=== PATIENT | female | born 1975 | race Two or more races ===

== ENCOUNTER 2016-09-27 21:55 | Emergency (ER) | payer MEDICAID ==
[~2016-09-27] VITALS: Ht 160 cm; Wt 45.4 kg
--- NOTE | 2016-09-27 22:46 | NUR ---
Dr. Mason at bedside for eval.
--- NOTE | 2016-09-27 22:52 | NUR ---
pt ambulatory w/ steady gait to restroom, urine obtained & sent to lab.
--- NOTE | 2016-09-27 23:11 | NUR ---
clinical laboratory manager at bedside for blood draw.
[2016-09-27] MEDS ORDERED: IV SET PRIMARY 1 EA INFUS.SET MC ONE (23:14)
[2016-09-27] MEDS ORDERED: IV NS 0.9% 500 ML IV ONE (23:14)
[2016-09-27] MEDS ORDERED: LORAZEPAM INJ 2 MG/ML VIAL ONE (23:14)
[2016-09-27] MEDS: IV NS 0.9% 500 ML BAG IV ONE (23:20)
--- NOTE | 2016-09-27 23:20 | NUR ---
IVHL started, medicated as ordered.
[2016-09-27] MEDS: LORAZEPAM INJ 2 MG/ML VIAL IV ONE (23:21)
[2016-09-27 23:29] LABS: BASOPHILS # (AUTO) 0.1 /CMM (0.0-0.2); BASOPHILS % (AUTO) 0.9 % (0.0-2.0); EOSINOPHILS # (AUTO) 0.1 /CMM (0.0-0.7); HEMATOCRIT 38 % (33-45); HEMOGLOBIN 12.7 g/dL (11.5-14.8); LYMPHOCYTES # (AUTO) 1.8 /CMM (0.8-4.8); LYMPHOCYTES % (AUTO) 28.6 % (20.0-44.0); MEAN CORPUSCULAR HEMOGLOBIN 32 PG (26.0-33.0); MEAN CORPUSCULAR HGB CONC 33 g/dl (31.0-36.0); MEAN CORPUSCULAR VOLUME 97 fL (82-100); MONOCYTES # (AUTO) 0.4 /CMM (0.1-1.30); MONOCYTES % (AUTO) 7.3 % (2.0-12.0); NEUTROPHILS # (AUTO) 3.8 /CMM (1.8-8.9); NEUTROPHILS % (AUTO) 62.2 % (43.0-81.0); PLATELET COUNT (AUTO) 273 /CMM (150-450); RDW COEFFICIENT OF VARIATION 13.9 (11.5-15.0); RED BLOOD CELL COUNT(AUTO) 3.94 MIL/uL (4.0-5.2); WHITE BLOOD COUNT (AUTO) 6.2 K/uL (4.3-11.0)
[2016-09-27 23:32] LABS: BILIRUBIN,URINE NEGATIVE (NEGATIVE); BLOOD, URINE 1+ Ery/uL (NEGATIVE); COLOR,URINE YELLOW (YELLOW); KETONES,URINE NEGATIVE (NEGATIVE); LEUKOCYTE ESTERASE ,URINE NEGATIVE (NEGATIVE); NITRITE, URINE NEGATIVE (NEGATIVE); PROTEIN,URINE NEGATIVE (NEGATIVE); UGLUCOSE NEGATIVE (NEGATIVE); UROBILINOGEN,URINE 0.2 EU/dL (0.2)
[2016-09-27 23:36] LABS: APPEARANCE,URINE CLEAR (CLEAR)
[2016-09-27 23:37] LABS: CALCIUM, SERUM 9.4 mg/dL (8.5-10.1); CREATININE 0.7 mg/dL (0.6-1.3); POTASSIUM 3.9 mmol/L (3.5-5.1)
[2016-09-27 23:45] LABS: ADD URINE CULTURE NO; BACTERIA,URINE None seen /HPF (None Seen); MUCUS,URINE Rare /LPF (None Seen); SQUAMOUS EPITHELIAL CELL,UR Rare /HPF (None Seen); WBC,URINE 0-2 /HPF (0-3)
--- NOTE | 2016-09-28 00:03 | NUR ---
pt ambulatory w/ steady gait to restroom, resp even & unlabored, report feeling better, denies any chest palpitations at this time w/ nad noted.
--- NOTE | 2016-09-28 00:39 | NUR ---
Dr. Mason at bedside for update on pt status.
--- NOTE | 2016-09-28 00:40 | NUR ---
IV removed. Catheter intact and site benign. Pressure and 4x4 applied to site. No bleeding noted.
--- NOTE | 2016-09-28 00:41 | NUR ---
Patient discharged to home in stable condition. Written and verbal after care instructions given. Patient verbalizes understanding of instruction.
[2016-09-28 00:42] VITALS: BP 118/64
== END 2016-09-28 00:43 | disposition home or self-care (01) ==
LOC: ER 22:01
DX: R00.2 Palpitations (principal); F41.9 Anxiety disorder, unspecified; F32.9 Major depressive disorder, single episode, unspecified
CPT/HCPCS: 36415; 80048; 81001; 84703; 85025; 93005; 96374; 99285; A4606; J2060; J7040; Z7610; 81000-TC